=== PATIENT | female | born 1990 | race Caucasian/White ===

== ENCOUNTER 2020-10-04 00:30 | Outpatient (CLI) | payer BC, SELFPAY ==
[2020-10-04 17:38] LABS: SARS-CoV-2 RNA PCR Negative
== END 2020-10-04 00:31 | disposition home or self-care (01) ==
LOC: ANHCOVIDDT 00:30
PROVIDERS: Visit Provider Obstetrics & Gynecology
DX: Z01.812 Encounter for preprocedural laboratory examination (principal); Z20.822 Contact with and (suspected) exposure to COVID-19
CPT/HCPCS: C9803; U0003; U0005

== ENCOUNTER 2020-10-07 02:01 | Day surgery (SDC) | payer BC, SELFPAY ==
[2020-10-01 14:33] VITALS: BMI 25.0
[2020-10-07] MEDS: LACTATED RINGERS 1,000 ML 30 ML IV CONT (10:42)
[2020-10-07] MEDS: ACETAMINOPHEN 500 MG TABLET 1000 MG PO (10:44)
[2020-10-07 10:48] VITALS: BP 134/71; PULSE 84; RESP 16; TEMP 37.3; O2SAT 100
--- NOTE | 2020-10-07 10:57 | WPDANESEPPF ---
Anes - Initial Pre Proc Eval Procedure: Operation Date: 10/07/20 12:00 Proposed Procedures p Vaginal Exam Under Anesthesia, Endometrial And Cervical Biopsy - Yen Ellis MD Date/Time: 10/07/20 10:57 Surgeon: Yen Ellis MD Pre Op Diagnosis: Atypical Glandular On Cervical Pap Patient Data Age: 30 Gender: F Height: 5 ft 5 in Weight: 68 kg Last Vital Signs Temp 99.1 F 10/07/20 10:48 Pulse 84 10/07/20 10:48 Resp 16 10/07/20 10:48 BP 134/71 10/07/20 10:48 Pulse Ox 100 10/07/20 10:48 Allergies Allergy/AdvReac Type Severity Reaction Status Date / Time No Known Allergies Allergy Verified 10/07/20 10:12 Home Medications Medication Instructions Recorded Confirmed Type blue-green algae (bulk) [Spirulina] ea MISCELLANEOUS DAILY 10/01/20 History cod liver oil 1 cap PO DAILY 10/01/20 10/07/20 History Patient hx anesthesia problems: none Family hx anesthesia problems: none [facility] Past Medical History Medical History (Updated 10/07/20 @ 10:57 by Thiago Flood MD) GERD (gastroesophageal reflux disease) Migraine Social History Social History Smoking status: Never smoker Second hand tobacco smoke exposure: No Alcohol intake: current Substance use: never Substance use type: does not use Living arrangements: with family Spiritual care concerns: No Anes - Eval Final PreProcedure Day of Procedure 10/07/20 10:57 Patient weight: normal Heart: regular rate and rhythm Lungs: clear to auscultation Airway: Mallampati scale class II Neurological: alert and oriented Last oral intake: >/= 8 hours ASA classification: II Emergent: no Anesthetic plan: proceed Anesthesia type and monitoring: general GIVS and standard monitoring Informed Consent: The patient's anesthetic plan and its attendant risks and benefits were discussed with the patient/family/POA. Questions were solicited and answers provided to the satisfaction of the patient/family/POA.
--- NOTE | 2020-10-07 11:55 | P.HP_ITS ---
H&P: HPI History of Present Illness Date/Time: 10/07/20 11:55 Chief Complaint: CONNER pap Narrative: Maite Aldridge is a 30 year old female here for EUA with cervical biopsies and EMB secondary to CONNER pap. Unable to tolerate in office, even premedicated. Review of Systems Review of Systems: All systems reviewed & are unremarkable except as noted in HPI and below (HPI) [facility] Past Medical History Medical History (Updated 10/07/20 @ 10:57 by Thiago Flood MD) GERD (gastroesophageal reflux disease) Migraine Social History Social History Smoking status: Never smoker Second hand tobacco smoke exposure: No Alcohol intake: current Substance use: never Substance use type: does not use Living arrangements: with family Spiritual care concerns: No Meds Home Medications and Allergies Home Medications Medication Instructions Recorded Confirmed Type blue-green algae (bulk) [Spirulina] ea MISCELLANEOUS DAILY 10/01/20 History cod liver oil 1 cap PO DAILY 10/01/20 10/07/20 History Allergies Allergy/AdvReac Type Severity Reaction Status Date / Time No Known Allergies Allergy Verified 10/07/20 10:12 Vital Signs Vital Signs - 24 hr 10/07/20 10:48 Temperature 99.1 F Pulse Rate 84 Respiratory Rate 16 Blood Pressure 134/71 Pulse Oximetry 100 Exam Const: General: no acute distress Neck: Neck: supple and no JVD Resp: Auscultation: clear to auscultation bilaterally Cardio: Rate: regular rate Rhythm: regular rhythm GI: GI Palp: Yes Soft to palpation Skin: General skin exam: normal color and no rashes or lesions noted Assessment and Plan Additional Plan Plan EUA with cervical biopsies and EMB will FU in office.
--- NOTE | 2020-10-07 12:08 | WPDHPUPDATE1 ---
History and Physical Update Update Date/Time: 10/07/20 12:08 History and Physical has been reviewed, including an updated exam of the patient. There are NO changes in the patient's condition. Risks, benefits, and alternatives have been discussed and questions answered. Patient agrees to proceed with procedure.
--- NOTE | 2020-10-07 12:35 | PM.PROC ---
Procedure Note - Detailed Date of procedure: 10/07/20 Pre-op diagnosis: Atypical Glandular On Cervical Pap Post-op diagnosis: same Procedure performed: Exam under anesthesia with cervical biopsies and endometrial biopy Description of procedure: The patient was taken to the operating room where she received MAC anesthesia. She was placed in dorsal lithotomy position in stirrups. A speculum was placed following vaginal prep. Endometrial biopsy was easily obtained using a pipelle. Lugols was then painted on the cervix revealing acetowhite changes circumferentially around the transformation zone. Two cervical biopsies were taken, one at 12 and one at 6 oclock. Then endometrial curettings were obtained. The three specimens were sent to pathology. Hemostasis was achieved with Monsel's. The speculum was removed. The patient did well and went to the recovery room in stable condition. Anesthesia: MAC Surgeon: Yen Ellis MD Filter Changing Technician: none Estimated blood loss (mL): 5 Drains: No Packing: No Pathology: yes Complications: No immediate complications Condition: stable Disposition: same day Findings:
[2020-10-07 12:36] VITALS: BP 106/50; PULSE 68; RESP 12; O2SAT 100
[2020-10-07 13:00] VITALS: BP 103/49; PULSE 63; RESP 12; O2SAT 97
[2020-10-07 13:30] VITALS: BP 115/55; PULSE 57; RESP 12; O2SAT 100
== END 2020-10-07 13:41 | disposition home or self-care (01) ==
PROVIDERS: Visit Provider Obstetrics & Gynecology
PROC: 0U5B8ZZ Destruction of Endometrium, Via Natural or Artificial Opening Endoscopic (ICD-10-PCS; CPT 58563; principal; 2020-10-07 12:00)
DX: N72 Inflammatory disease of cervix uteri (principal)
CPT/HCPCS: 58100; 88305; A9270; J1100; J2250; J2405; J2704; J3010; J7030; J7120